=== PATIENT | female | born 1940 | race Caucasian/White ===

== ENCOUNTER 2021-05-21 13:00 | Emergency (ER) | payer OTHER ==
--- OUTSIDE RECORDS SUMMARY | 2021-05-21 13:05 | XMS REPORT | Continuity of Care Document ---
:1940 Author Organization [facility] t Address [address] [place] [address] Care Team Providers Name Role Phone RACHELLE Primary Care Physician Unavailable Wander KING Attending Clinician Unavailable DEISY Attending Clinician Unavailable Kai Armstrong Attending Clinician Deann Attending Clinician Abisai Tripp Attending Clinician Payers Payer Name Policy Type Policy Number Effective Date Expiration Date S chris [employer] [employer] PPO [id number] 2013 00:00:00 Problems Condition Condition Condition Status Onset Resolution Last Treating Co mments Source Name Details Category Date Date Treatment Clinician Date LUMBAR Diagnosis Active 2017-03-31 Mem oria COMPRESSIO 6- 14:36:00 l N LUMBAR 08:00: Brooten COMPRESSIO 00 N Active 02/09/2017 [facility] M54.5 - Diagnosis Active 2015-092016-10-03 Me moria LOW BACK 2-12 11:20:00 l PAIN M54.5 - 00:01: Thaddeus LOW BACK 00 PAIN Active 08/22/2016 BRIAN Farias M17.11 - Diagnosis Active 2014-092015-09-17 M emoria UNILATERAL 2-01 16:31:00 l PRIMARY M17.11 - 00:01: Vy nn OSTEOARTHR UNILATERAL 00 I PRIMARY OSTEOARTHR I Active 08/11/2015 SANDOR Travis BRIAN Farias LUMBAR Diagnosis Active 2012-12-20 Mem oria STENOSIS 4-05 09:54:00 l LUMBAR 00:00: Brooten STENOSIS 00 Active 12/14/2012 [facility] Breast Problem Resolve 2013-02-17 Christian boyd cancer d 20:39:17 l Breast Thaddeus cancer Resolved Problem 02/17/2013 [facility] OPID Thaddeus HLD - Problem Resolve 2013-02-17 Christian boyd Hyperlipid d 20:39:17 l emia HLD - Thaddeus Hyperlipid emia Resolved Problem 02/17/2013 [facility] OPID Brooten Pain Problem Resolve 2013-02-17 Christian boyd d 20:39:17 l Pain Brooten Resolved Problem 02/17/2013 [facility] OPID Thaddeus Malignant Problem Resolve 2017-05-02 M emoria tumor of d 00:05:10 l breast Thaddeus (disorder) Malignant tumor of breast (disorder) Resolved Problem 05/02/2017 [facility] Travis[facility] Resolve 2017-05-02 Memoria emia d 00:05:10 l (disorder) Amando n Hyperlipid emia (disorder) Resolved Problem 05/02/2017 [facility] Travis[facility] Pain Problem Resolve 2017-05-02 Christian boyd (finding) d 00:05:10 l Pain Thaddeus (finding) Resolved Problem 05/02/2017 [facility]AN Travis[facility] Compressio Problem Active 2017-05-02 M emoria n fracture 00:05:10 l of lumbar Thaddeus spine Compressio (disorder) n fracture of lumbar spine (disorder) Active Problem 05/02/2017 [facility] Comp[facility]io Problem Active 2017-05-02 M emoria n fracture 00:05:10 l of Brooten thoracic Compressio spine n fracture (disorder) of thoracic spine (disorder) Active Problem 05/02/2017 [facility] Low back Problem Active 2017-05-02 Mem oria pain 00:05:10 l (disorder) Low back He rmann pain (disorder) Active Problem 05/02/2017 [facility] SPIN Diagnosis Active 2012-12-20 Mem oria STEN,LUMBR 09:54:00 l WO TERESITA SPIN Brooten STEN,LUMBR WO TERESITA Active [facility] NEURALGIA/ Diagnosis Active 2012-12-20 Memoria NEURITIS 09:54:00 l NOS Thaddeus NEURALGIA/ NEURITIS NOS Active [facility] Allergies, Adverse Reactions, Alerts Allergy Allergy Status Severity Reaction(s) Onset Inactive Treating Comm ents Source Name Type Date Date Clinician acetamin acetamin Active Memori a ophen-pr ophen-pr 4-05 l opoxyphe opoxyphe 05:00: Amando n ne<sup>1 ne<sup>1 00 </sup> </sup> amoxicil amoxicil Active Memori a tylor<sup> tylor<sup> 4-05 l 2</sup> 2</sup> 05:00: Thaddeus 00 codeine< codeine< Active Memori a sup>3, sup>3, 4-05 l 4</sup> 4</sup> 05:00: Brooten 00 amoxicil amoxicil Active Memori a tylor tylor l Thaddeus clindamy clindamy Active Memori a jen jen l Thaddeus Social History Social Habit Start Date Stop Date Quantity Comments Source Social History 2017-02-16 2017-02-[address] [facility] [place] [place] 15:54:13 15:54:13 Medications Ordered Filled Start Stop Current Ordering Indication Dosage Frequency Signature Comments Components Source Medication Medication Date Date Medication? Clinician (SIG) Name Name Amna Mckinney No Saint-Aaro 133 ml, Memoria 4-13 n Ramón Route: MT, l 19:36: Drug Form: LIGIA, Dosing Weight 68.182, kg, ONCE, Start date: 12/22/12 14:36:00, Stop date: 12/22/12 14:36:00 morphine No Saint-Aaro 2 mg, 1 Memoria Sulfate 4-13 n Ramón mL, Route: l 15:08: IVP, Drug form: INJ, ONCE, Dosing Weight 68.182, kg, Start date: 12/22/12 10:08:00, Stop date: 12/22/12 10:08:00 Zofran 4 mg 2013-0 Yes Saint-Aaro 4 mg, 1 Memoria oral tablet -13 n Ramón tab, PO, l 14:54: Q8H, 42 Brooten 27 tab, Substituti on Allowed magnesium No Saint-Aaro 300 ml, Memoria citrate -13 n Ramón Route: PO, l 13:15: Drug Form: Thaddeus 00 LIQ, Dosing Weight 68.182, kg, ONCE, Start date: 12/22/12 8:15:00, Stop date: 12/22/12 8:15:00 [place] Yes Concetta 1-2 tab, Memori a 10/325 oral 4-12 Armani PO, Q4-6H, l tablet 17:36: Rodrigo PRN, 90 Vy nn 28 tab, Pain, Substituti on Allowed, Maintenanc e docusate Yes Concetta 100 mg, 1 Me moria sodium 100 4-12 Armani cap, PO, l mg oral 17:36: Rodrigo Q12H, 60 Her loredo capsule 06 cap, Substituti on Allowed, CAP diazepam 5 Yes Concetta 5 mg, 1 Me moria mg oral 4-12 Armani tab, PO, l tablet 17:36: Rodrigo Q8H, 30 Vy nn 02 tab, Substituti on Allowed, TAB fenofibrate No Saint-Aaro 145 mg, 1 Memoria 145 mg oral 4-12 n Ramón tab, l tablet 14:00: Route: PO, Vy nn 00 Drug form: TAB, Daily, Dosing Weight 68.182, kg, Start date: 12/21/12 9:00:00, Duration: 30 day, Stop date: 01/19/13 9:00:00 Pepcid 20 No Saint-Aaro 40 mg, 2 Memoria mg oral 4-12 n Ramón tab, l tablet 14:00: Route: PO, Vy nn Drug form: TAB, Daily, Dosing Weight 68.182, kg, Start date: 12/21/12 9:00:00, Duration: 30 day, Stop date: 01/19/13 9:00:00 predniSONE No Saint-Aaro 5 mg, 1 Memoria 4-12 n Ramón tab, l 14:00: Route: PO, Brooten Drug form: TAB, Daily, Dosing Weight 68.182, kg, Start date: 12/21/12 9:00:00, Duration: 30 day, Stop date: 01/19/13 9:00:00 Pravachol 2012-0 No Saint-Aaro 40 mg, 2 Memoria 4-12 n Ramón tab, l 14:00: Route: PO, Thaddeus 00 Drug form: TAB, Daily, Dosing Weight 68.182, kg, Start date: 12/21/12 9:00:00, Duration: 30 day, Stop date: 01/19/13 9:00:00 polyethylen 2012-0 No Saint-Aaro 17 gm, 1 Memoria e glycol 4-12 n Ramón pkt, l 3350 14:00: Route: PO, Brooten 00 Drug form: PWDR, Daily, Dosing Weight 68.182, kg, Start date: 12/21/12 9:00:00, Duration: 30 day, Stop date: 01/19/13 9:00:00 vancomycin 2012- No Saint-Aaro 1 gm, Memoria 4-12 vasiliy Melgar Route: l 06:30: IVPB, Drug form: INJ, [id number], Dosing Weight 68.182, kg, Start date: 12/21/12 1:30:00, Duration: 1 day, Stop date: 12/21/12 13:30:00 Saline 2012-0 No Saint-Aaro 5 ml, Christian boyd Flush 0.9% 12 vasiliy Melgar Route: l 02:00: IVP, Drug Form: INJ, Dosing Weight 68.182, kg, Q12H, Start date: 12/20/12 21:00:00, Duration: 30 day, Stop date: 01/19/13 9:00:00 docusate 2012-0 No Saint-Aaro 100 mg, 1 Memoria 4-12 n Ramón cap, l 02:00: Route: PO, Drug form: CAP, Q12H, Dosing Weight 68.182, kg, Start date: 12/20/12 21:00:00, Duration: 30 day, Stop date: 01/19/13 9:00:00 senna 2012-0 No Saint-Aaro 8.8 mg, 5 M emoria 4-12 vasiliy Melgar mL, Route: l 02:00: PO, Drug Form: SYRP, Dosing Weight 68.182, kg, Q12H, Start date: 12/20/12 21:00:00, Duration: 30 day, Stop date: 01/19/13 9:00:00 diazepam 2012- No Saint-Aaro 5 mg, 1 Memoria -11 n Ramón tab, l 21:00: Route: PO, Drug form: TAB, Q8H, Dosing Weight 68.182, kg, Start date: 12/20/12 16:00:00, Duration: 30 day, Stop date: 01/19/13 8:00:00 ondansetron 2012- No Oludayo A 4 mg, Memoria 12-20 Adeyefa Route: l 18:56: IVP, ONCE, Dosing Weight 68.182, kg, PRN Nausea & Vomiting, Start date: 12/20/12 13:56:00 hydrALAZINE No Oludayo A 5 mg, Memoria 12-20 Adeyefa Route: l 18:56: IVP, Thaddeus 00 Q5Min, Dosing Weight 68.182, kg, PRN Elevated BP, Start date: 12/20/12 13:56:00, Duration: 4 doses or times, Stop date: Limited # of times naloxone No Oludayo A 0.04 mg, Memoria 12-20 Adeyefa Route: l 18:56: IVP, Thaddeus 00 Q2MIN, Dosing Weight 68.182, kg, PRN Narcotic Reversal, Start date: 12/20/12 13:56:00, Duration: 8 doses or times, Stop date: Limited # of times flumazenil No Oludayo A 0.2 mg, Memoria 12-20 Adeyefa Route: l 18:56: IVP, PRN, Brooten 00 Dosing Weight 68.182, kg, PRN Benzodiaze pine Reversal, Initial dose, Start date: 12/20/12 13:56:00, Duration: 30 day, Stop date: 01/19/13 13:55:00 hydromorpho No Oludayo A 0.5 mg, Memoria ne 12-20 Adeyefa Route: l 18:56: IVP, Brooten 00 Q5Min, Dosing Weight 68.182, kg, PRN Pain Score 4-6, Start date: 12/20/12 13:56:00, Duration: 5 doses or times, Stop date: Limited # of times labetalol No Oludayo A 5 mg, Me moria 12-20 Adeyefa Route: l 18:56: IVP, Thaddeus 00 Q5Min, Dosing Weight 68.182, kg, PRN Elevated BP, Start date: 12/20/12 13:56:00, Duration: 5 doses or times, Stop date: Limited # of times metoprolol No Oludayo A 1 mg, M emoria 12-20 Adeyefa Route: l 18:56: IVP, Thaddeus 00 Q5Min, Dosing Weight 68.182, kg, PRN Elevated BP, Start date: 12/20/12 13:56:00, Duration: 5 doses or times, Stop date: Limited # of times HYDROmorpho No Saint-Aaro 15 mg, 30 Memoria ne 0.5mg/mL 12-20 vasiliy Melgar mL, Route: l MIDDLE STITCHER 18:30: IV, MIDDLE STITCHER Brooten (15mg/30 00 Dose: 0.3 mL) 15 mg mg, MIDDLE STITCHER Lockout: 15 minutes, 4 Hour Limit (In MG): 4.8, Drug Form: INJ, Continuous , Start date: 12/20/12 13:30:00, Duration: 30 day, Stop date: 01/19/13 13:29:00 vancomycin No Kristopher 1 gm, Mem oria 12-20 Roula Route: l 18:21: Robert IVPB, Drug Herm aman 00 form: INJ, ONCE, Dosing Weight 68.182, kg, Start date: 12/20/12 13:21:00, Stop date: 12/20/12 13:21:00 Saline No Saint-Aaro 5 ml, Christian boyd Flush 0.9% 12-20 vasiliy Melgar Route: l 18:20: IVP, Drug Thaddeus 00 Form: INJ, Dosing Weight 68.182, kg, PRN, PRN Line Flush, Start date: 12/20/12 13:20:00, Duration: 30 day, Stop date: 01/19/13 13:19:00 acetaminoph No Saint-Aaro 650 mg, Memoria en 4-11 vasiliy Ramón 20.3 mL, l 18:20: Route: PO, Thaddeus 00 Drug form: LIQ, Q4H, Dosing Weight 68.182, kg, PRN Pain 1-3/Temp > 99.5 F, Start date: 12/20/12 13:20:00, Duration: 30 day, Stop date: 01/19/13 13:19:00 acetaminoph No Saint-Aaro 1 tab, Memoria en-hydrocod 4 vasiliy Melgar Route: PO, l one 325 18:20: Drug Form: Herm aman mg-10 mg 00 TAB, oral tablet Dosing Weight 68.182, kg, Q4H, PRN Pain Score 4-6, Start date: 12/20/12 13:20:00, Duration: 30 day, Stop date: 01/19/13 13:19:00 ondansetron No Saint-Aaro 4 mg, 2 Memoria -11 vasiliy Melgar mL, Route: l 18:20: IVP, Drug Brooten 00 form: INJ, Q8H, Dosing Weight 68.182, kg, PRN Nausea & Vomiting, Start date: 12/20/12 13:20:00, Duration: 30 day, Stop date: 01/19/13 13:19:00 vancomycin No Kristopher 1 gm, Mem oria 12-20 Roula Route: l 03:00: Robert IVPB, Drug Herm aman 00 form: INJ, PRE OP, Start date: 12/19/12 22:00:00, Duration: 1 day, Stop date: 12/20/12 21:59:00 predniSONE Yes Saint-Aaro 5 mg, 1 Memoria 5 mg oral 4-10 vasiliy Ramón tab, PO, l tablet 15:17: Daily, 7 Brooten 47 tab, Substituti on Allowed, TAB lidocaine Yes TOP, Q12H, Me moria topical 4-10 Substituti l patch (5% 15:16: on Thaddeus film) 24 Allowed, (remove patch(s) after 12 hours)(rem ove patch(s) after 12 hours) Vicodin No 1 tab, PO, Christian boyd 5/500 oral 4-10 Q4H, PRN, l tablet 15:16: for pain, Amando n 01 Substituti on Allowed, Maintenanc e, TAB methocarbam Yes PO, PRN, Me moria ol 500 mg 4-10 Substituti l oral tablet 15:15: on Allowed Thaddeus 11 Pepcid 40 Yes Saint-Aaro 40 mg, 1 Memoria mg oral 4-10 n Ramón tab, PO, l tablet 15:14: Daily, 30 Amando n 47 tab, Substituti on Allowed Caltrate Yes PO, BID, Memor ia 600 + D 4-10 Substituti l 15:14: on Brooten 11 Allowed, Maintenanc e Pravachol Yes Saint-Aaro 40 mg, 1 Memoria 40 mg oral 4-10 n Ramón tab, PO, l tablet 15:13: Daily, 30 Amando n 54 tab, Substituti on Allowed, TAB fenofibrate Yes Saint-Aaro 145 mg, 1 Memoria 145 mg oral 4-10 n Ramón tab, PO, l tablet 15:13: Daily, 30 Amando n 26 tab, Substituti on Allowed, TAB Glucosamine 0 Yes PO, Daily, Memoria & 4-10 Substituti l Chondroitin 15:13: on Amando n with MSM 13 Allowed, oral tablet Maintenanc e Vital Signs Vital Name Observation Time Observation Value Comments Source HEIGHT 2021-01-20 11:30:00 156.5 cm WEIGHT 2021-01-20 11:30:00 64.9 kg Systolic (mm Hg) 2012-12-22 16:33:00 Christian prasad Thaddeus Respitory Rate 2012-12-22 16:33:00 Lorenzo al Brooten Heart Rate 2012-12-22 16:33:00 [facility] Brooten Diastolic (mm Hg) 2012-12-22 16:33:00 Mem orial Thaddeus Temperature Oral (F) 2012-12-22 16:33:00 98.4 F Memorial Brooten Heart Rate 2012-12-22 12:00:00 [facility] Thaddeus Temperature Oral (F) 2012-12-22 12:00:00 98.1 F [facility] Thaddeus Diastolic (mm Hg) 2012-12-22 12:00:00 Mem orial Brooten Systolic (mm Hg) 2012-12-22 12:00:00 Christian rial Thaddeus Respitory Rate 2012-12-22 12:00:00 Memori al Thaddeus Systolic (mm Hg) 2012-12-22 09:12:00 Christian rial Brooten Diastolic (mm Hg) 2012-12-22 09:12:00 Mem orial Thaddeus Respitory Rate 2012-12-22 09:12:00 Memori al Brooten Heart Rate 2012-12-22 09:12:00 [facility] Thaddeus Temperature Oral (F) 2012-12-22 09:12:00 99.6 F [facility] Brooten Height 2012-12-20 15:45:00 165.1 cm [facility] Brooten Weight 2012-12-20 15:45:00 [facility] Brooten Weight 2012-12-19 14:15:00 [facility] Brooten Height 2012-12-19 14:15:00 165.1 cm [facility] Thaddeus Procedures Procedure Date / Time Performed Performing Clinician [facility] e Eye operation [facility] Brooten Hysterectomy [facility] Thaddeus Knee joint operation [facility] Mastectomy of left breast Memori al Thaddeus Mastopexy [facility] Brooten Wrist reconstruction [facility] He rmann Eye operation [facility] Thaddeus Hysterectomy [facility] Thaddeus Knee joint operation [facility] He rmann Mastectomy of left breast Memori al Thaddeus Mastopexy [facility] Thaddeus Wrist reconstruction [facility] He rmann Encounters Start End Encounter Admission Attending Care Care Encounter Source Date/Time Date/Time Type Type Clinicians Facility Department ID 2021-01-20 2021-01-20 Outpatient TIM DANIEL MDA, MDA [id number] 11:05:51 12:13:30 Deejay amanda 2021-01-20 2021-01-20 Outpatient JATINDER OLIVAS MDA MDA [id number] 10:32:14 10:32:14 PARADISE Ferrer so vasiliy 2020-12-22 2020-12-22 [id number] 2020-11-24 2020-11-24 [facility] [id number] 2020-11-16 2020-11-16 [facility] [id number] [facility] 2020-11-10 2020-11-10 [facility] [id number] [facility] 2017-03-31 2017-04-30 OP Therapy nullFlavo [facility] [id number] Memoria 19:30:00 04:59:00 Patients r [facility] 00 [facility] 2017-03-31 2017-04-29 Outpatient Nathaniel, [id number] 14:30:00 23:59:00 Sourav [id number] 00 Kai [id number] 2017-03-16 2017-03-17 Outpt Diag nullFlavo [facility] [id number] Memoria 14:57:00 04:59:00 Services r Outpatient 10 [facility] 2017-03-16 2017-03-16 Outpatient Nathaniel MHOIP MHOIP [id number] 09:57:00 23:59:00 Sourav Santino Kai 2017-02-16 2017-02-16 Outpatient MHIE MHIE [id number] Memoria 10:40:00 10:40:00 04 [facility] 2016-12-22 2016-12-22 Outpatient MHIE MHIE [id number] Memoria 10:00:00 10:00:00 03 [facility] 2016-12-01 2016-12-01 Outpatient MHIE MHIE [id number] Memoria 11:20:00 11:20:00 02 [facility] 2016-11-10 2016-11-11 Outpt Diag nullFlavo [facility] [id number] Memoria 16:57:00 05:59:00 Services r Outpatient 09 [facility] 2016-11-10 2016-11-10 Outpatient Nathaniel MHOIP MHOIP [id number] 10:57:00 23:59:00 Sourav 09 Kai 2016-10-05 2016-10-05 Outpatient MHIE MHIE [id number] Memoria 10:00:00 10:00:00 01 [facility] 2016-10-03 2016-10-04 Outpt Diag nullFlavo [facility] [id number] Memoria 17:17:00 05:59:00 Services r Outpatient 08 l Imaging Thaddeus Alexander 2016-10-03 2016-10-03 Outpatient Deann, MHOIP OIP [id number] 11:17:00 23:59:00 Hiroe 08 2016-08-12 2016-08-13 Outpt Diag nullFlavo [facility] [id number] Memoria 16:00:00 05:59:00 Services r Outpatient 07 l Imaging Thaddeus Alexander 2016-08-12 2016-08-12 Outpatient Nathaniel, MHOIP OIP [id number] 10:00:00 23:59:00 Souravsarah Quinn 2016-07-27 2016-07-27 Outpatient MHIE IE [id number] Memoria 09:30:00 09:30:00 00 ino Brooten 2015-09-07 2015-09-08 Outpt Diag nullFlavo [facility] [id number] Memoria 17:53:00 05:59:00 Services r Outpatient 06 l Imaging Thaddeus Brooten 2015-09-07 2015-09-07 [id number] 11:53:00 23:59:00 Shay Barone 06 2012-12-20 2012-12-22 Inpatient nullFlavo [facility] [id number] Memoria 09:53:00 16:15:00 r Medical 00 l [facility] Results Test Description Test Time Test Comments Results Result Comments Source [facility] 2012-12-19 [facility]2 [facility] 14:[facility]00 H[facility]Y 2012-12-19 40.7 [facility] nn 14:10:00 HEMATOLOGY 2012-12-19 13.9 [facility] 14:10:00 HEMATOLOGY 2012-12-19 93.0 [facility] 14:10:00 HEMATOLOGY 2012-12-19 10.9 [facility] Vy nn 14:10:00 HEMATOLOGY 2012-12-19 4.38 [facility] Vy nn 14:10:00 HEMATOLOGY 2012-12-19 14:10:00 Test Item Value Reference Range Interpretation Comme nts PTT (test code = PTT) 29.6 s 22.9-35.8 N [id number] 14:10:00 Test Item Value Reference Range Interpretation Comments PT (test code = PT) 13.6 s 12.0-14.7 N [facility] [id number] 14:10:001.02[facility] HermannHEMATOLOGY 2012-12-19 14:10:000.1[facility] QidvszuRRRSNDTNQU0457-76-83 14:10:0025.1[facility] PnbycdtECYLJEBXUS6217-45-87 14:10:0066.2[facility]orial HxdsanuLMZAZOIWQH0057-79-91 14:10:007.2[facility]orial QqoglznPFQUHCBPYV9659-50-85 14:10:000.6[facility] Thaddeus RWHIZUAHIG0128-11-62 14:10:000.1[facility] PporrstTISEHTKHSF8484-23-25 14:10:007.2 Memorial EuqybszIGMYKNDYFU6968-51-98 14:10:000.9[facility] HermannHEMATOLOGY 2012-12-19 14:10:000.8[facility] LcuxmgpIPXXTVCMMA8527-73-65 14:10:002.7[facility]orial CtgukzpLTNKAHQVU7689-28-04 14:10:0065[facility] GjxcukrMUHUPGAGC3154-71-71 14:10:000.5[facility] NyxndnpIPDPAHGTB5422-67-41 14:10:0020[facility] Brooten YLQQVTSII6654-77-82 14:10:007.8[facility] TeuihwpUAEMZVPSC9932-79-63 14:10:009.7 Memorial NqkdxqiCNGORKMJR5825-17-67 14:10:0028[facility] HermannCHEMISTRY 2012-12-19 14:10:0028[facility] TylszvbZMTBMAVFE2018-95-13 14:10:0073[facility] ZjmnbptESZNQVTFG7855-07-82 14:10:0072[facility] FbwozyiTHAFHLLQS8844-26-54 14:10:004.5[facility] PrlqotbUVFEUIUDU9714-22-11 14:10:0025[facility] Thaddeus HPHXXYBMR8248-35-23 14:10:000.9[facility]orial PbmtxycLCKGBJGBI5045-14-76 14:10:20739 Memorial PwwranxEHEQVQQZI2099-62-55 14:10:84208Vqjtjzmg HermannCHEMISTRY 2012-12-19 14:10:004.6[facility]orial RqiyblhUWUZCDQLE2047-99-53 14:10:001.4[facility] UnnkgldCBICELNOJ5522-23-50 14:10:0011.6[facility]orial BhetwtjTJPWGSXNK9411-73-79 14:10:003.3Memorial SdlpidaFAMHASUCC0877-57-38 14:10:0031[facility] Brooten ANSVQBORCO9004-98-89 14:10:11042Gayihlka CcftjldVUWPSVVWOL0565-03-44 14:10:00 12.7Memorial ZbjbgbyBDTDVFIHBA8255-11-53 14:10:009.0[facility] HermannHEMATOLOGY 2012-12-19 14:10:00 Test Item Value Reference Range Interpretation Comments MCH (test code = MCH) 31.8 pg 27.0-31.0 H [facility] [id number] 14:00:00Negative (12/19/2012 09:00:00)[facility]
[2021-05-21 13:24] LABS: Absolute Lymphocytes (CBC) 3.1 K/uL (0.7-4.9); Basophils % 1.1 % (0-1.3); Hematocrit 39.4 % (36.0-45.0); Lymphocytes % 34.5 % (15.3-44.8); MPV 8.3 fL (7.6-11.3); RBC Red Blood Cell Count 4.25 M/uL (3.86-4.86)
[2021-05-21 13:36] LABS: Protime INR 0.97
[2021-05-21 13:49] LABS: ALT/SGPT 25 U/L (12-78); AST/SGOT 27 U/L (15-37); Albumin 4.2 g/dL (3.4-5.0); Alkaline Phosphatase 42 U/L (45-117); BUN Blood Urea Nitrogen 27 mg/dL (7-18); Bicarbonate 26 mmol/L (21-32); Bilirubin Direct < 0.1 mg/dL (0-0.2); Bilirubin Total 0.4 mg/dL (0.2-1.0); Glucose Level 113 mg/dL (74-106); Magnesium 2.4 mg/dL (1.8-2.4); NT PRO-BNP 148 pg/mL (<450); Potassium 3.9 mmol/L (3.5-5.1); Protein, Total 7.7 g/dL (6.4-8.2); Sodium Level 140 mmol/L (136-145); Troponin (Emerg Dept Use Only) < 0.02 ng/mL (0.0-0.045)
[2021-05-21] MEDS ORDERED: MAGNES/ALUMIN/SIMET 30ML UCUP ONE (14:54)
[2021-05-21] MEDS ORDERED: LIDOCAINE VISCOUS 2% SOLN 15 ML UDC ONE (14:54)
--- NOTE | 2021-05-21 16:57 | RAD REPORT ---
EXAM DESCRIPTION: CT - Thorax W/ Con - 05/21/2021 4:13 pm CLINICAL HISTORY: PAIN, recurring vomiting COMPARISON: Ribs Right dated 09/17/2015 TECHNIQUE: Dynamically enhanced 5 mm thick images of the chest were obtained during administration o f 100 mL non-ionic IV contrast. All CT scans are performed using dose optimization technique as appropriate and may include automated exposure control or mA/KV adjustment according to patient size. FINDINGS: A large hiatal hernia is present with approximately 1/3 of the stomach intrathoracic. Nume digna punctate extraluminal air densities are present along the course of the thoracic esophagus from the thoracic inlet level to the herniated portion of the stomach. There is additional heterogeneity t hat could indicate extraluminal food content or debris. Rent or tear of the thoracic esophagus is fav ored. Underlying esophageal mass lesion is not identified. The GE junction and gastric wall detail ar e limited in the setting of a hiatal hernia. No aspiration or lung parenchymal abnormality. No pleural thickening or pleural effusion. No pneumoth orax. No chest wall mass or abnormal axillary lymphadenopathy. No mediastinal or hilar solid mass or lymphadenopathy. Heart size is prominent. No pericardial effusi on. Left breast prosthesis in place. Findings telephoned to the referring physician 4:52 p.m.. IMPRESSION: Numerous punctate air densities are present in the mediastinum along the course of the t horacic esophagus. Rent or tear of the esophagus is most likely. There is a large hiatal hernia with approximately 1/3 of the stomach intrathoracic. There is heterogeneous soft tissue attenuation in addition to air in the mediastinum suggesting leaka ge of food content into the mediastinum.
--- NOTE | 2021-05-21 17:00 | ER ---
Nurse's Notes [facility] Name: Melida Cross Age: 80 yrs Sex: Female : 1940 Arrival Date: 05/21/2021 Time: 13:05 Bed 14 Private MD: Diagnosis: Esophageal rupture status post food bolus in esophagus Presentation: 05/21 13:12 Chief complaint: Patient states: sudden onset midsternal chest pain 30 minutes ago, iw also has been vomiting, no cardiac hx, denies SOB or cough or fever. Coronavirus screen: Ebola Screen: Patient negative for fever greater than or equal to 101.5 degrees Fahrenheit, and additional compatible Ebola Virus Disease symptoms Patient denies exposure to infectious person. Patient denies travel to an Ebola-affected area in the 21 days before illness onset. No symptoms or risks identified at this time. Initial Sepsis Screen: Does the patient meet any 2 criteria? No. Patient's initial sepsis screen is negative. Does the patient have a suspected source of infection? No. Patient's initial sepsis screen is negative. Risk Assessment: Do you want to hurt yourself or someone else? Patient reports no desire to harm self or others. Onset of symptoms was May 21, 2021. 13:12 Method Of Arrival: Ambulatory iw 13:12 Acuity: ROLANDO 2 iw Triage Assessment: 20:58 General: Appears in no apparent distress. General: Behavior is calm, cooperative, lh3 appropriate for age. Historical: - Allergies: 13:13 Darvocet-N 100; iw 13:13 Codeine; iw 13:13 Amoxicillin; iw 13:13 Clindamycin; iw 13:13 Latex, Natural Rubber; iw - Home Meds: 13:13 amlodipine 5 mg tab 1 tab twice a day [Active]; fenofibrate 145 mg oral once daily iw [Active]; metoprolol tartrate 25 mg Oral tab 1 tab 2 times per day [Active]; Caltrate 600 plus D 600 mg (1,500 mg)-800 unit oral chew daily [Active]; olmesartan 40 mg oral tab 1 tab once daily [Active]; aspirin 81 mg Oral TbEC 1 tab once daily [Active]; - PMHx: 13:16 Hypertensive disorder; Hypercholesterolemia; iw - Immunization history:: Client reports receiving the 2nd dose of the Covid vaccine. - Social history:: Smoking status: Patient denies any tobacco usage or history of. Screenin:57 Abuse screen: Denies threats or abuse. Nutritional screening: No deficits noted. 3 Tuberculosis screening: No symptoms or risk factors identified. Fall Risk None identified. IV access (20 points). Assessment: 19:53 Reassessment: Attempted to call report at 1920, transfer center stated that they are [facility] still getting report, and could not take report at this time. She stated that she was calling the yard warehouse worker, and was informed that Ambulance was here transport patient over. 20:57 Pain: Pain began. Cardiovascular: Reports chest pain. 3 Vital Signs: 17:11 BP 143 / 60; Pulse 92; Resp 16; Temp 97.8(O); Pulse Ox 100% on R/A; mt 18:36 BP 122 / 58; Pulse 88; Resp 16; Temp 98.9; Pulse Ox 98% on R/A; aj2 ED Course: 13:05 Patient arrived in ED. ds1 13:08 Michael East MD is Attending Physician. kdr 13:13 Triage completed. iw 13:16 Arm band placed on. iw 13:18 EKG done, by ED staff, reviewed by Michael East MD. Inserted saline lock: 20 gauge in nm right antecubital area, using aseptic technique. Blood collected. 15:30 Rachele Caceres is Primary Nurse. aj2 16:13 CT Chest W/ Con In Process Unspecified. EDMS 16:58 initiated a transfer with Trevor Leslie Rn from the [facility]. eb 17:[address] Booth the thoracic surgeon online services manager for [facility] with Dr. Cruzito whipple for patient transfer consultation. 17:17 initiated a transfer with Brian from the [facility] at the eb request of the family. 17:20 patient declined at [facility] per Brian/ their facility is at capacity. eb 17:[address] Mack the hospitalist online services manager for [facility] with Dr. East for eb patient transfer consultation. 18:04 administrative approval given by Trevor Leslie Rn/ patient has been accepted to [facility] Rm 1015/ Dr. Lanre Mack has accepted the patient in transport/ report to be called to [phone]. 20:57 Patient has correct armband on for positive identification. Bed in low position. Call 3 light in reach. monitor technician on. Pulse ox on. NIBP on. 20:57 Patient transferred, IV remains in place. 3 20:57 No provider procedures requiring assistance completed. Patient maintains SpO2 3 saturation greater than 95% on room air. 20:59 Report given to CLOTILDE White. 3 Administered Medications: 14:32 Drug: GI Cocktail without - (Maalox Suspension 30 ml, Lidocaine Liquid 2 % 15 ss ml) Route: PO; 16:58 Drug: morphine 4 mg Route: IVP; Site: right antecubital; aj2 17:34 Follow up: Response: No adverse reaction; Pain is decreased ss 16:59 Drug: Zofran (Ondansetron) 4 mg Route: IVP; Site: right antecubital; aj2 17:34 Follow up: Response: No adverse reaction ss 17:33 Drug: Cefepime 1 grams {Note: given slow IV push per pharmacy protocol.} Route: IVPB; ss Rate: 200 ml/hr; Infused Over: 30 mins; Site: right antecubital; 18:36 Drug: vancoMYCIN 1 grams Route: IVPB; Infused Over: 2 hrs; Site: right antecubital; aj2 Outcome: 16:59 ER care complete, transfer ordered by . kdr 19:53 Transferred by ground EMS to [facility], Transfer form completed. 3 X-rays sent w/ patient. 19:53 Condition: good 19:53 Instructed on the need for transfer, Demonstrated understanding of instructions. 19:54 Patient left the ED. 3 Signatures: Dispatcher [employer] EDMS Michael East MD MD kdr Sanford, Althea ds1 Robina Douglas RN RN Carmen Mendosa RN RN ss Thompson, Moriah mt Botello, Elizabeth eb Hardee, Latisha, RN RN 3 Rachele Caceres aj2
--- NOTE | 2021-05-21 17:00 | EDPHYS ---
Physician Documentation [facility] Name: Melida Cross Age: 80 yrs Sex: Female : 1940 Arrival Date: 05/21/2021 Time: 13:05 Bed 14 Private MD: ED Physician Michael East HPI: 05/21 17:54 This 80 yrs old Female presents to ER via Ambulatory with complaints of Chest kdr Pain. 17:54 The patient or guardian reports chest pain that is located primarily in the substernal kdr area, xiphoid area and left breast. Onset: suddenly, just prior to arrival. The pain does not radiate. Associated signs and symptoms: Pertinent positives: nausea, shortness of breath, Patient is unable to swallow her oral secretions. The chest pain is described as aching, dull, a pressure, sharp. Duration: The patient or guardian reports a single episode, that is still ongoing. Modifying factors: The symptoms are alleviated by nothing. the symptoms are aggravated by nothing. Severity of pain: At its worst the pain was moderate severe just prior to arrival, in the emergency department the pain is unchanged. The patient has not experienced similar symptoms in the past, Patient states that she has had occasional episodes in the past few years of difficulty swallowing solids. However she felt today that she had chewed her food sufficiently to not have this problem.. The patient has not recently seen a physician. Historical: - Allergies: 13:13 Darvocet-N 100; iw 13:13 Codeine; iw 13:13 Amoxicillin; iw 13:13 Clindamycin; iw 13:13 Latex, Natural Rubber; iw - Home Meds: 13:13 amlodipine 5 mg tab 1 tab twice a day [Active]; fenofibrate 145 mg oral once daily iw [Active]; metoprolol tartrate 25 mg Oral tab 1 tab 2 times per day [Active]; Caltrate 600 plus D 600 mg (1,500 mg)-800 unit oral chew daily [Active]; olmesartan 40 mg oral tab 1 tab once daily [Active]; aspirin 81 mg Oral TbEC 1 tab once daily [Active]; - PMHx: 13:16 Hypertensive disorder; Hypercholesterolemia; iw - Immunization history:: Client reports receiving the 2nd dose of the Covid vaccine. - Social history:: Smoking status: Patient denies any tobacco usage or history of. ROS: 17:54 Constitutional: Negative for fever, chills, and weight loss, Eyes: Negative for injury, kdr pain, redness, and discharge, ENT: Negative for injury, pain, and discharge, Neck: Negative for injury, pain, and swelling, Abdomen/GI: Negative for abdominal pain, nausea, vomiting, diarrhea, and constipation, Back: Negative for injury and pain, : Negative for injury, bleeding, discharge, and swelling, MS/Extremity: Negative for injury and deformity, Skin: Negative for injury, rash, and discoloration, Neuro: Negative for headache, weakness, numbness, tingling, and seizure activity. Psych: Negative for depression, anxiety, suicide ideation, homicidal ideation, and hallucinations, Allergy/Immunology: Negative for hives, rash, and allergies, Endocrine: Negative for neck swelling, polydipsia, polyuria, polyphagia, and marked weight changes, Hematologic/Lymphatic: Negative for swollen nodes, abnormal bleeding, and unusual bruising. 17:54 Cardiovascular: Positive for chest pain, with cough, with movement, of the xiphoid area, Negative for edema, orthopnea, palpitations. 17:54 Respiratory: Positive for shortness of breath. Exam: 17:54 Constitutional: This is a well developed, well nourished patient who is awake, alert, kdr and in moderate distress. Head/Face: Normocephalic, atraumatic. Eyes: Pupils equal round and reactive to light, extra-ocular motions intact. Lids and lashes normal. Conjunctiva and sclera are non-icteric and not injected. Cornea within normal limits. Periorbital areas with no swelling, redness, or edema. Neck: Trachea midline, no thyromegaly or masses palpated, and no cervical lymphadenopathy. Supple, full range of motion without nuchal rigidity, or vertebral point tenderness. No Meningismus. Chest/axilla: Normal chest wall appearance and motion. Nontender with no deformity. No lesions are appreciated. Cardiovascular: Regular rate and rhythm with a normal S1 and S2. No gallops, murmurs, or rubs. Normal PMI, no JVD. No pulse deficits. Respiratory: Lungs have equal breath sounds bilaterally, clear to auscultation and percussion. No rales, rhonchi or wheezes noted. No increased work of breathing, no retractions or nasal flaring. Abdomen/GI: Soft, non-tender, with normal bowel sounds. No distension or tympany. No guarding or rebound. No evidence of tenderness throughout. Back: No spinal tenderness. No costovertebral tenderness. Full range of motion. Skin: Warm, dry with normal turgor. Normal color with no rashes, no lesions, and no evidence of cellulitis. MS/ Extremity: Pulses equal, no cyanosis. Neurovascular intact. Full, normal range of motion. Neuro: Awake and alert, GCS 15, oriented to person, place, time, and situation. Cranial nerves II-XII grossly intact. Motor strength 5/5 in all extremities. Sensory grossly intact. Cerebellar exam normal. Normal gait. Psych: Awake, alert, with orientation to person, place and time. Behavior, mood, and affect are within normal limits. Vital Signs: 17:11 BP 143 / 60; Pulse 92; Resp 16; Temp 97.8(O); Pulse Ox 100% on R/A; mt 18:36 BP 122 / 58; Pulse 88; Resp 16; Temp 98.9; Pulse Ox 98% on R/A; aj2 Procedures: 17:54 Performed Esophageal foreign body and carbonated beverages-. After the initial kdr assessment, the patient was determined to have had a very likely esophageal food bolus. She was given several attempts at drinking a carbonated beverage. Ultimately on the third attempt, it seemed that the bolus had passed and she was able to drink fluids without problem after that.. MDM: 16:59 Patient medically screened. kdr 17:54 Data reviewed: vital signs, nurses notes, lab test result(s), EKG, radiologic studies. kdr Counseling: I had a detailed discussion with the patient and/or guardian regarding: the historical points, exam findings, and any diagnostic results supporting the discharge/admit diagnosis, lab results, radiology results, the need to transfer to another facility. ED course: Shortly after the patient had cleared the food bolus, she started to have more and recurrent pain in the area where she had previously had discomfort. It steadily increased to the point where she requested pain medication. In addition she started to have some discomfort in her mid back as well. Upon hearing the of the recurrence of pain initially, CT chest was ordered. Results are found in the other areas of the chart. Based on these findings, the patient was transferred to [facility] for further evaluation and treatment and availability of thoracic surgery. Patient was transferred in stable condition. There were no further complications during the patient stay. I disclose fully all findings from laboratory and CT. I also discussed the fact that the dislodging of the food bolus probably resulted in the rents or tears in her esophagus and now the free air in food debris.. 05/21 13:06 Order name: Basic Metabolic Panel; Complete Time: 14:17 05/21 13:06 Order name: CBC with Diff; Complete Time: 14: 05/21 13:06 Order name: LFT's; Complete Time: 14: 05/21 13:06 Order name: Magnesium; Complete Time: 14: 05/21 13:06 Order name: NT PRO-BNP; Complete Time: 14: 05/21 13:06 Order name: PT-INR; Complete Time: 14: 05/21 13:06 Order name: Troponin (emerg Dept Use Only); Complete Time: 14: 05/21 15:08 Order name: CT Chest W/ Con; [facility]: [facility] 05/[facility] 18:40 Order name: SARS-COV-2 RT PCR EDMS 05/21 13:06 Order name: EKG; Complete Time: 13: 05/21 13:06 Order name: Cardiac monitoring; Complete Time: 13:18 iw 05/21 13:06 Order name: EKG - Nurse/Tech; Complete Time: 13:18 iw 05/21 13:06 Order name: IV Saline Lock; Complete Time: 13: 05/21 13:06 Order name: Labs collected and sent; Complete Time: 13:18 iw 05/21 13:06 Order name: O2 Per Protocol; Complete Time: 13: 05/21 13:06 Order name: O2 Sat Monitoring; Complete Time: 13:18 iw Administered Medications: 14:32 Drug: GI Cocktail without - (Maalox Suspension 30 ml, Lidocaine Liquid 2 % 15 ss ml) Route: PO; 16:58 Drug: morphine 4 mg Route: IVP; Site: right antecubital; aj2 17:34 Follow up: Response: No adverse reaction; Pain is decreased ss 16:59 Drug: Zofran (Ondansetron) 4 mg Route: IVP; Site: right antecubital; aj2 17:34 Follow up: Response: No adverse reaction ss 17:33 Drug: Cefepime 1 grams {Note: given slow IV push per pharmacy protocol.} Route: IVPB; ss Rate: 200 ml/hr; Infused Over: 30 mins; Site: right antecubital; 18:36 Drug: vancoMYCIN 1 grams Route: IVPB; Infused Over: 2 hrs; Site: right antecubital; aj2 Disposition Summary: 05/21/21 16:59 Transfer Ordered Transfer Location: [facility] kdr Reason: Higher level of care kdr Condition: Serious kdr Problem: new kdr Symptoms: have worsened kdr Accepting Physician: [facility](05/21/21 19:54) lh3 Diagnosis - Esophageal rupture status post food bolus in esophagus kdr Forms: - Medication Reconciliation Form kdr - SBAR form kdr Signatures: Dispatcher [employer] EDMS Michael East MD MD kdr Robina Douglas RN RN Carmen Mendosa RN RN Emilee Kidd RN RN lh3 Rachele Caceres aj2 Corrections: (The following items were deleted from the chart) 13:38 13:07 Chest Single View+RAD.RAD.BRZ ordered. EDMS EDMS 16:54 15:09 TROPONIN (EMERG DEPT USE ONLY)+C.LAB.BRZ ordered. EDMS EDMS 17:32 16:57 CORONAVIRUS+MR.LAB.BRZ ordered. EDMS EDMS 19:54 16:59 [facility] kdr lh3
[2021-05-21] MEDS ORDERED: ONDANSETRON 4 MG/2 ML VIAL ONE (17:31)
[2021-05-21] MEDS ORDERED: MORPHINE 4 MG/ML SYR ONE (17:31)
[2021-05-21] MEDS ORDERED: CEFEPIME/SWI 1gm 10 ML ONE (17:50)
[2021-05-21] MEDS ORDERED: VANCOMYCIN/NS 1 gm 1 GM/250 ML BAG IVPB ONE (18:00)
[2021-05-21 20:01] VITALS: BP 122/58; TEMP 98.9; O2SAT 98
== END 2021-05-21 19:54 | disposition short-term general hospital (02) ==
LOC: ER 13:00
DX: K22.3 Perforation of esophagus (principal); Z20.822 Contact with and (suspected) exposure to COVID-19; I10 Essential (primary) hypertension; E78.00 Pure hypercholesterolemia, unspecified; Z88.1 Allergy status to other antibiotic agents; Z88.3 Allergy status to other anti-infective agents; Z88.5 Allergy status to narcotic agent; Z91.040 Latex allergy status; Z91.048 Other nonmedicinal substance allergy status
CPT/HCPCS: 93005; 85025; 80048; 36415; 83735; 85610; 80076; 84484; 83880; 71260; 96375; 96374; 99285; U0003; Q9967; J3370; J0692; J2405

== ENCOUNTER 2024-08-20 21:17 | Emergency (ER) | payer OTHER ==
[2024-08-20] MEDS ORDERED: ONDANSETRON 4 MG/2 ML VIAL ONE (22:54)
[2024-08-20] MEDS ORDERED: NA CHLORIDE 0.9% 500 ML ONE (22:54)
[2024-08-20 23:16] LABS: Anion Gap 8.9 mEq/L (5.0-15.0); Potassium 3.9 mEq/L (3.5-5.1)
[2024-08-20 23:46] LABS: Absolute Basophils 0.1 K/uL (0-0.5); Absolute Eosinophils 0.1 K/uL (0-0.5); Absolute Lymphocytes (CBC) 1.6 K/uL (0.7-4.9); Absolute Monocytes 0.6 K/uL (0.1-1.3); Basophils % 1.1 % (0-1.3); Eosinophils % 1.8 % (0-4.4); Hematocrit 41.5 % (36.0-45.0); Hemoglobin 13.8 g/dL (12.0-15.0); Lymphocytes % 21.4 % (15.3-44.8); MCH 31.6 pg (27.0-35.0); MCHC 33.1 g/dL (32.0-36.0); MCV 95.5 fL (80-100); MPV 8.9 fL (7.6-11.3); Monocytes % 7.7 % (3.3-12.3); Platelets 337 thou/uL (152-406); RBC Red Blood Cell Count 4.35 M/uL (3.86-4.86); Red Cell Distribution Width 12.9 % (12.1-15.2)
--- NOTE | 2024-08-21 02:07 | RAD REPORT ---
EXAM: CT Chest, Abdomen and Pelvis With Intravenous Contrast CLINICAL HISTORY: Chest pain, hx of HTN, breast cancer, esophageal tear repair, back, right hip surgery, left breast ma stectomy. TECHNIQUE: Axial computed tomography images of the chest, abdomen and pelvis with intravenous contrast. Sagitt al and coronal reformatted images were created and reviewed. This CT exam was performed using one or more of the following dose reduction techniques: automated exposure control, adjustment of the m A and/or kV according to patient size, and/or use of iterative reconstruction technique. COMPARISON: CT Chest 05/21/2021. FINDINGS: CHEST: Lungs: Unremarkable. No mass. No consolidation. Pleural space: Unremarkable. No significant effusion. No pneumothorax. Heart: Unremarkable. No cardiomegaly. No significant pericardial effusion. No significant cor onary artery calcifications. Mediastinum: The esophagus is mildly patulous. Large hiatal hernia again demonstrated. Suspect 3 cm food bolus at the GE junction (series 301 image 68 and series 305 image 78). No extraluminal gas identified to suggest a perforation. ABDOMEN: Liver: The liver is diffusely low in density compatible with steatosis. Gallbladder and bile ducts: Unremarkable. No calcified stones. No ductal dilation. Pancreas: Unremarkable. No ductal dilation. No mass. Spleen: Unremarkable. No splenomegaly. Adrenals: Unremarkable. No mass. Kidneys and ureters: Normal renal cortical enhancement. No calculi. No hydronephrosis. Stomach and bowel: Moderate stool throughout the large bowel. Colonic diverticula without adjacent inflammatory change. No obstruction. No mucosal thickening. PELVIS: Appendix: No findings to suggest acute appendicitis. Bladder: The urinary bladder is distended. Reproductive: There has been a hysterectomy. No adnexal cysts or masses are identified. CHEST, ABDOMEN and PELVIS: Intraperitoneal space: No free air. No focal fluid collection. Bones/joints: Multilevel spondylosis. Remote T11, T12, L1 and L2 compression fractures. Prior L1 ve rtebroplasty. Bilateral posterior fusion hardware at L2-L3. Prior posterior decompression at L2-L5. Remote right femoral intertrochanteric fracture gamma nail fixation. No dislocation. Soft tissues: Left breast implants. Vasculature: Moderate atherosclerotic disease. No aortic aneurysm. 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 Lymph nodes: Unremarkable. No enlarged lymph nodes. IMPRESSION: 1. Large hiatal hernia. Suspected retained/lodged 3 cm food bolus at the GE junction. No extralumin al gas identified to suggest a perforation. 2. No focal infiltrate. 3. No acute process identified within the abdomen and pelvis. 4. Other findings as above. Electronically signed by: Joby Josue MD 08/21/2024 02:03 AM [facility] Due to temporary technical issues with the PACS/[employer] reporting system, reports are being rula d by the in-house radiologist without review as a courtesy to ensure prompt reporting the interpreting radiologist is fully responsible for the content of the report. Transcribed Date/Time: 08/21/2024 2:06 AM
[2024-08-21] MEDS ORDERED: GLUCAGON 1 MG/VIAL ONE (02:29)
[2024-08-21] MEDS ORDERED: METOCLOPRAMIDE 10 MG/2mL INJ ONE (02:29)
--- NOTE | 2024-08-21 03:19 | EDPHYS ---
Physician Documentation [facility] Name: Melida Cross Age: 83 yrs Sex: Female : 1940 Arrival Date: 08/20/2024 Time: 21:17 Bed 7 Private MD: ED Physician Rehan Salgado HPI: 08/20 21:30 This 83 yrs old Female presents to ER via Unassigned with complaints of sp4 Choked/Choking, Chest Wall Pain, Nausea/Vomiting. 08/21 03:22 83-year-old female very pleasant female who comes in with acute dysphagia. Patient sp4 states she was eating spring roll, which has caused patient to get acute dysphagia causing the Spring roll to hang up somewhat in the neck. Patient then reported resolution. This has occurred at 6 PM today. Patient has history of esophageal fistula with prior esophageal perforation and history of esophageal repair 3 years ago at [facility], with placement of esophageal stent. Patient then reports esophageal stent was removed.. Historical: - Allergies: 08/20 21:38 Amoxicillin; cm10 21:38 Clindamycin; cm10 21:38 Codeine; cm10 21:38 Darvocet-N 100; cm10 21:38 Latex; cm10 - Home Meds: 08/21 03:21 amlodipine 5 mg tab 1 tab twice a day [Active]; aspirin 81 mg Oral TbEC 1 tab once aa10 daily [Active]; Caltrate 600 plus D 600 mg (1 Oral chew daily [Active]; fenofibrate 145 MG Oral once daily [Active]; metoprolol tartrate 25 mg Oral tab 1 tab 2 times per day [Active]; olmesartan 40 mg Oral tab 1 tab once daily [Active]; - PMHx: 08/20 21:38 Hypercholesterolemia; Hypertensive disorder; cm10 - PSHx: 21:38 esophageal tear-repair; cm10 - Immunization history:: Adult Immunizations up to date. - Infectious Disease History:: Denies. - Social history:: Smoking status: Patient denies any tobacco usage or history of. - Family history:: not pertinent. ROS: 08/21 03:22 Constitutional: Negative for fever, chills, and weight loss, positive for acute sp4 dysphagia and positive for odynophagia All other systems are negative, Exam: 03:22 Constitutional: This is a well developed, well nourished patient who is awake, alert, sp4 and in no acute distress. Head/Face: Normocephalic, atraumatic. Eyes: Pupils equal round and reactive to light, extra-ocular motions intact. Lids and lashes normal. Conjunctiva and sclera are not injected. Cornea within normal limits. Periorbital areas with no swelling, redness, or edema. ENT: Nares patent. No nasal discharge, no septal abnormalities noted. Tympanic membranes are normal and external auditory canals are clear. Oropharynx with no redness, swelling, or masses, exudates, or evidence of obstruction, uvula midline. Mucous membranes moist. Neck: Trachea midline, no thyromegaly or masses palpated, and no cervical lymphadenopathy. Supple, full range of motion without nuchal rigidity, or vertebral point tenderness. Chest/axilla: Normal chest wall appearance and motion. Nontender with no deformity. No lesions are appreciated. Cardiovascular: Regular rate and rhythm with a normal S1 and S2. No gallops, murmurs, or rubs. Normal PMI, no JVD. No pulse deficits. Respiratory: Lungs have equal breath sounds bilaterally, clear to auscultation and percussion. No rales, rhonchi or wheezes noted. No increased work of breathing, no retractions or nasal flaring. Abdomen/GI: Soft, with normal bowel sounds. No distension or tympany. No guarding or rebound. No evidence of tenderness throughout. Back: No spinal tenderness. No costovertebral tenderness. Skin: Warm, dry with normal turgor. Normal color with no rashes, no lesions, and no evidence of cellulitis. MS/ Extremity: Pulses equal, no cyanosis. Neurovascular intact. Full, normal range of motion. Neuro: Awake and alert, GCS 15, oriented to person, place, time, and situation. Cranial nerves II-XII grossly intact. Motor strength 5/5 in all extremities. Sensory grossly intact. Psych: Awake, alert, with orientation to person, place and time. Behavior, mood, and affect are within normal limits Vital Signs: 08/20 21:39 BP 156 / 85; Pulse 99; Resp 18; Temp 97.7; Pulse Ox 97% on R/A; Weight 62.6 kg; Height cm10 5 ft. 2 in. ; Pain 02/18; 08/21 00:54 BP 134 / 68; Pulse 82; Resp 16; Pulse Ox 98% on R/A; ty 02:41 BP 138 / 65; Pulse 88; Resp 20 S; Pulse Ox 99% on R/A; aa10 03:22 BP 127 / 58; Pulse 81; Resp 20 S; Pulse Ox 97% on R/A; aa10 08/20 21:39 Body Mass Index 25.24 (62.60 kg, 157.48 cm) cm10 08/20 21:39 Pain Scale: Adult cm10 [place] Coma Score: 03:22 Eye Response: spontaneous(4). Motor Response: obeys commands(6). Verbal Response: sp4 oriented(5). Total: 15. MDM: 08/20 21:31 Medical Screening Exam initiated sp4 08/21 02:20 ED course: EXAM: CT Chest, Abdomen and Pelvis With Intravenous Contrast CLINICAL sp4 HISTORY: Chest pain, hx of HTN, breast cancer, esophageal tear repair, back, right hip surgery, left breast mastectomy. TECHNIQUE: Axial computed tomography images of the chest, abdomen and pelvis with intravenous contrast. Sagittal and coronal reformatted images were created and reviewed. This CT exam was performed using one or more of the following dose reduction techniques: automated exposure control, adjustment of the mA and/or kV according to patient size, and/or use of iterative reconstruction technique. COMPARISON: CT Chest 05/21/2021. FINDINGS: CHEST: Lungs: Unremarkable. No mass. No consolidation. Pleural space: Unremarkable. No significant effusion. No pneumothorax. Heart: Unremarkable. No cardiomegaly. No significant pericardial effusion. No significant coronary artery calcifications. Mediastinum: The esophagus is mildly patulous. Large hiatal hernia again demonstrated. Suspect 3 cm food bolus at the GE junction (series 301 image 68 and series 305 image 78). No extraluminal gas identified to suggest a perforation. ABDOMEN: Liver: The liver is diffusely low in density compatible with steatosis. Gallbladder and bile ducts: Unremarkable. No calcified stones. No ductal dilation. Pancreas: Unremarkable. No ductal dilation. No mass. Spleen: Unremarkable. No splenomegaly. Adrenals: Unremarkable. No mass. Kidneys and ureters: Normal renal cortical enhancement. No calculi. No hydronephrosis. Stomach and bowel: Moderate stool throughout the large bowel. Colonic diverticula without adjacent inflammatory change. No obstruction. No mucosal thickening. PELVIS: Appendix: No findings to suggest acute appendicitis. Bladder: The urinary bladder is distended. Reproductive: There has been a hysterectomy. No adnexal cysts or masses are identified. CHEST, ABDOMEN and PELVIS: Intraperitoneal space: No free air. No focal fluid collection. Bones/joints: Multilevel spondylosis. Remote T11, T12, L1 and L2 compression fractures. Prior L1 vertebroplasty. Bilateral posterior fusion hardware at L2-L3. Prior posterior decompression at L2-L5. Remote right femoral intertrochanteric fracture gamma nail fixation. No dislocation. Soft tissues: Left breast implants. Vasculature: Moderate atherosclerotic disease. No aortic aneurysm. 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 Lymph nodes: Unremarkable. No enlarged lymph nodes. IMPRESSION: 1. Large hiatal hernia. Suspected retained/lodged 3 cm food bolus at the GE junction. No extraluminal gas identified to suggest a perforation. 2. No focal infiltrate. 3. No acute process identified within the abdomen and pelvis. 4. Other findings as above. Electronically signed by: Joby Josue MD 08/21/2024 02:03 AM. 03:22 Differential diagnosis: chest wall pain, esophagitis, Cary-Nieves syndrome. Data sp4 reviewed: vital signs, nurses notes, old medical records, lab test result(s), radiologic studies, CT scan. ED course: CT scan has revealed basically a large hiatal hernia and suspected 3 cm food bolus next to gastroesophageal junction. No sign of esophageal perforation. Patient then was able to tolerate p.o. water and p.o. chocolate bar. No vomiting. At this time patient is handling her secretions. It seems that esophageal food bolus has resolved on its own. Will recommend mechanical soft or pured diet and follow-up with election judge at [facility] for upper endoscopy. Otherwise stable for discharge home. 08/20 21:55 Order name: Basic Metabolic Panel; Complete Time: 02: sp4 08/20 21:55 Order name: CBC with Diff; Complete Time: : sp4 08/20 21:54 Order name: CT Chest, Abdomen, Pelvis - W/Contrast sp4 08/20 21:55 Order name: IV Saline Lock; Complete Time: 22:58 sp4 08/20 21:55 Order name: Labs collected and sent; Complete Time: 22:58 sp4 Administered Medications: 08/20 22:58 Drug: NS 0.9% IV 500 ml 500 ml IV at 1 bolus once; to be given as a bolus over 30 lg3 minutes Volume: 500 ml; Route: IV; Rate: 1 bolus; Site: right antecubital; 08/21 03:25 Follow up: Response: No adverse reaction; Marked relief of symptoms; IV Status: aa10 Completed infusion; IV Intake: 500ml 08/20 22:58 Drug: Ondansetron IVP 4 mg IVP once; over 2 minutes Route: IVP; Site: right antecubital;lg3 08/21 03:26 Follow up: Response: No adverse reaction aa10 02:39 Drug: metoCLOPramide IVP 10 mg IVP once; over 1 to 2 minutes Route: IVP; Site: right ha1 forearm; 03:24 Follow up: Response: No adverse reaction; Marked relief of symptoms aa10 03:26 Follow up: Response: No adverse reaction aa10 02:40 Drug: Glucagon IVP 1 mg IVP once Route: IVP; Site: right forearm; ha1 03:24 Follow up: Response: No adverse reaction; Marked relief of symptoms aa10 Disposition Summary: 08/21/24 03:19 Discharge Ordered Problem: new sp4 Symptoms: have improved sp4 Condition: Stable sp4 Diagnosis - Esophageal food impaction , Large Hiatal Hernia , Acute Dysphagia - resolved sp4 Followup: sp4 - With: Private Physician - When: 7 - 10 days - Reason: Recheck today's complaints Discharge Instructions: - Discharge Summary Sheet sp4 - Hiatal Hernia sp4 - Dysphagia Eating Plan, Pureed sp4 Forms: - Patient Portal Instructions sp4 Signatures: Dispatcher [employer] Elaine Pardo RN RN lg3 Mariela Montero RN RN ha1 Rehan Salgado MD MD sp4 Treasure Sanders RN RN cm10 Barb Ashraf RN RN aa10
--- NOTE | 2024-08-21 03:19 | ER ---
Nurse's Notes [facility] Name: Melida Cross Age: 83 yrs Sex: Female : 1940 Arrival Date: 08/20/2024 Time: 21:17 Bed 7 Private MD: Diagnosis: Esophageal food impaction , Large Hiatal Hernia , Acute Dysphagia - resolved Presentation: 08/20 21:39 Chief complaint: Patient states: WAS EATING AN EGGROLL TODAY AT 1800 AND FELT LIKE IT cm10 GOT STUCK. PT STATES THAT SHE STARTED VOMITING IMMEDIATELY AFTER. PT STATES THAT SHE DOES NOT FEEL THE FOOD STUCK ANYMORE. PT REPORTS CHEST PAIN FROM THE VOMITING. PT STATES THAT SHE HAD A SIMILAR ISSUE 3 YEARS AGO AND WAS DIAGNOSED WITH AN ESOPHAGEAL TEAR. Coronavirus screen: Client denies travel out of the [place] in the last 14 days. Ebola Screen: Patient denies travel to an Ebola-affected area in the 21 days before illness onset. No symptoms or risks identified at this time. Initial Sepsis Screen: Does the patient meet any 2 criteria? HR > 90 bpm. Does the patient have a suspected source of infection? No. Patient's initial sepsis screen is negative. Risk Assessment: Do you want to hurt yourself or someone else? Patient reports no desire to harm self or others. Onset of symptoms was August 20, 2024. 21:39 Method Of Arrival: Ambulatory cm10 21:39 Acuity: ROLANDO 3 cm10 Triage Assessment: 21:41 General: Appears in no apparent distress. comfortable, Behavior is calm, cooperative. cm10 Pain: Complains of pain in chest Pain does not radiate. Pain currently is 8 out of 10 on a pain scale. Quality of pain is described as SORE. Neuro: No deficits noted. Level of Consciousness is awake, alert, obeys commands, Oriented to person, place, time, situation, Appropriate for age. Respiratory: No deficits noted. Airway is patent Respiratory effort is even, unlabored, Respiratory pattern is regular, symmetrical. Historical: - Allergies: 21:38 Amoxicillin; cm10 21:38 Clindamycin; cm10 21:38 Codeine; cm10 21:38 Darvocet-N 100; cm10 21:38 Latex; cm10 - Home Meds: 08/21 03:21 amlodipine 5 mg tab 1 tab twice a day [Active]; aspirin 81 mg Oral TbEC 1 tab once aa10 daily [Active]; Caltrate 600 plus D 600 mg (1 Oral chew daily [Active]; fenofibrate 145 MG Oral once daily [Active]; metoprolol tartrate 25 mg Oral tab 1 tab 2 times per day [Active]; olmesartan 40 mg Oral tab 1 tab once daily [Active]; - PMHx: 08/20 21:38 Hypercholesterolemia; Hypertensive disorder; cm10 - PSHx: 21:38 esophageal tear-repair; cm10 - Immunization history:: Adult Immunizations up to date. - Infectious Disease History:: Denies. - Social history:: Smoking status: Patient denies any tobacco usage or history of. - Family history:: not pertinent. Screenin/11 02:41 [facility] ED Fall Risk Assessment (Adult) History of falling in the last 3 months, aa10 including since admission No falls in past 3 months (0 pts) Confusion or Disorientation No (0 pts) Intoxicated or Sedated No (0 pts) Impaired Gait No (0 pts) Mobility Assist Device Used No (0 pt) Altered Elimination No (0 pt) Score/Fall Risk Level 0 - 2 = Low Risk Oriented to surroundings, Maintained a safe environment, Educated pt \T\ family on fall prevention, incl call for assistance when getting out of bed, Assessed \T\ reinforced patient's understanding of fall precautions, Provided non-skid footwear, Hourly rounding (assess needs \T\ fall precautionary measures) done. Abuse screen: Denies threats or abuse. Denies injuries from another. Nutritional screening: No deficits noted. Tuberculosis screening: No symptoms or risk factors identified. Assessment: 02:35 General: Appears in no apparent distress. comfortable, Behavior is calm, cooperative, aa10 appropriate for age, Smells of Reports report difficulty swallowing,able to tolerate 200mls of water and a chocolate bar Denies. Pain: Denies pain. Neuro: No deficits noted. Level of Consciousness is awake, alert, obeys commands, Oriented to person, place, time, situation, Appropriate for age. Cardiovascular: No deficits noted. Capillary refill < 3 seconds. Respiratory: No deficits noted. Airway is patent. GI: No deficits noted. No signs and/or symptoms were reported involving the gastrointestinal system. Abdomen is flat, non-distended. : No deficits noted. No signs and/or symptoms were reported regarding the genitourinary system. EENT: No deficits noted. No signs and/or symptoms were reported regarding the EENT system. Derm: No deficits noted. No signs and/or symptoms reported regarding the dermatologic system. Skin is intact, is healthy with good turgor, Skin is dry, Skin is pink, warm \T\ dry. Skin temperature is warm. Musculoskeletal: No deficits noted. No signs and/or symptoms reported regarding the musculoskeletal system. 03:20 Reassessment: Patient appears in no apparent distress at this time. No changes from aa10 previously documented assessment. Patient and/or family updated on plan of care and expected duration. Pain level reassessed. Patient is alert, oriented x 3, equal unlabored respirations, skin warm/dry/pink. Patient states feeling better. Patient states symptoms have improved. Vital Signs: 08/20 21:39 BP 156 / 85; Pulse 99; Resp 18; Temp 97.7; Pulse Ox 97% on R/A; Weight 62.6 kg; Height cm10 5 ft. 2 in. ; Pain 02/18; 08/21 00:54 BP 134 / 68; Pulse 82; Resp 16; Pulse Ox 98% on R/A; ty 02:41 BP 138 / 65; Pulse 88; Resp 20 S; Pulse Ox 99% on R/A; aa10 03:22 BP 127 / 58; Pulse 81; Resp 20 S; Pulse Ox 97% on R/A; aa10 08/20 21:39 Body Mass Index 25.24 (62.60 kg, 157.48 cm) cm10 08/20 21:39 Pain Scale: Adult cm10 [place] Coma Score: 03:22 Eye Response: spontaneous(4). Motor Response: obeys commands(6). Verbal Response: sp4 oriented(5). Total: 15. ED Course: 08/20 21:22 Patient arrived in ED. jj6 21:30 Rehan Salgado MD is Attending Physician. sp4 21:41 Triage completed. cm10 21:42 Arm band placed on right wrist. Patient placed in waiting room. cm10 22:29 Radiology exam delayed due to lab results not completed at this time. (BUN/Creatinine) jc4 IV insertion attempt and/or patient not having appropriate IV at this time. 22:58 Initial lab(s) drawn, by ED staff, sent to lab. Inserted saline lock: 20 gauge in right lg3 antecubital area, using aseptic technique. Blood collected. Flushed with 10 mL NS. 22:58 Basic Metabolic Panel Sent. lg3 22:58 CBC with Diff Sent. lg3 1211 00:03 CT Chest, Abdomen, Pelvis - W/Contrast In Process Unspecified. EDMS 02:35 Barb Ashraf, RN is Primary Nurse. aa10 02:41 Patient has correct armband on for positive identification. Allergy band placed. Bed in aa10 low position. Call light in reach. Side rails up X2. Provided Education on: educated on risk for fall,patient informed to call if in need of assistance, call lujan placed close to patient. 02:41 No provider procedures requiring assistance completed. aa10 03:27 IV discontinued. aa10 Administered Medications: 08/20 22:58 Drug: NS 0.9% IV 500 ml 500 ml IV at 1 bolus once; to be given as a bolus over 30 lg3 minutes Volume: 500 ml; Route: IV; Rate: 1 bolus; Site: right antecubital; 08/21 03:25 Follow up: Response: No adverse reaction; Marked relief of symptoms; IV Status: aa10 Completed infusion; IV Intake: 500ml 08/20 22:58 Drug: Ondansetron IVP 4 mg IVP once; over 2 minutes Route: IVP; Site: right antecubital;lg3 08/21 03:26 Follow up: Response: No adverse reaction aa10 02:39 Drug: metoCLOPramide IVP 10 mg IVP once; over 1 to 2 minutes Route: IVP; Site: right ha1 forearm; 03:24 Follow up: Response: No adverse reaction; Marked relief of symptoms aa10 03:26 Follow up: Response: No adverse reaction aa10 02:40 Drug: Glucagon IVP 1 mg IVP once Route: IVP; Site: right forearm; ha1 03:24 Follow up: Response: No adverse reaction; Marked relief of symptoms aa10 Medication: 02:41 VIS not applicable for this client. aa10 Intake: 03:25 IV: 500ml; Total: 500ml. aa10 Outcome: 03:19 Discharge ordered by MD. horowitz 03:36 Discharged to home ambulatory, aa10 03:36 Condition: good 03:36 Discharge instructions given to patient, Instructed on discharge instructions, follow up and referral plans. Demonstrated understanding of instructions, follow-up care, 03:38 Patient left the ED. aa10 Signatures: Dispatcher [employer] Elaine Pardo, RN RN lg3 Amy Cotter jj6 Mariela Montero RN RN ha1 Rehan Salgado MD MD sp4 Treasure Sanders RN RN cm10 Clifton Morton Justin 4 Barb Ashraf RN RN aa10 Corrections: (The following items were deleted from the chart) 08/20 22:59 22:58 Inserted saline lock: 20 gauge in left antecubital area, using aseptic technique. lg3 Blood collected. Flushed with 10 mL NS lg3
[2024-08-21 03:42] VITALS: TEMP 97.7
[2024-08-21 03:47] VITALS: BP 127/58; O2SAT 97
== END 2024-08-21 03:38 | disposition home or self-care (01) ==
LOC: ER 21:17
DX: T18.128A Food in esophagus causing other injury, initial encounter (principal); K44.9 Diaphragmatic hernia without obstruction or gangrene; R07.9 Chest pain, unspecified; I10 Essential (primary) hypertension; E78.00 Pure hypercholesterolemia, unspecified; Z79.82 Long term (current) use of aspirin
CPT/HCPCS: 85025; 80048; 36415; 71260; 74177; 99284; Q9967; J1610; J2765; J2405; J7040